=== PATIENT | female | born 1975 | race Caucasian/White ===

== ENCOUNTER 2023-05-18 15:32 | Emergency (ER) | payer SELFPAY ==
[~2023-05-18] VITALS: Ht 165.1 cm; Wt 80.0 kg
[~2023-05-18 15:32] MED LIST: AMOXICILLIN 50500 MG PO; BACTROBAN15 GM TOP; CENTRUM SILVER1 TA1 PO; CEPHALEXIN500 M1 PO; DECADRON4 MG PO; EPA-CON500 MG PO; IBU600 MG PO; LORTAB 5/500 501 TAB PO; NO HOME MEDICATIONS; PREDNISONE20 MG PO; PRENATAL1 TA7 PO; PRILOSEC10 MG PO; TESSALON PERLE200 MG PO; ZITHROMAX 250M250 MG PO
[2023-05-18 18:54] LABS: BASO # 0.1 K/mm3 (0.0-0.2); BASO % 0.6 % (0.0-2.0); EOS # 0.2 K/mm3 (0.0-0.7); EOS % 1.7 % (0.0-4.0); GRAN # 5.3 K/mm3 (1.4-6.5); GRAN % 58.6 % (42.2-75.2); HEMATOCRIT 46.1 % (37.0-47.0); HEMOGLOBIN 15.3 g/dl (12.5-16.0); LYMPH % 33.1 % (20.0-51.0); MEAN CELL VOLUME 94 fl (80.0-100.0); MEAN CORPUSCULAR HEMOGLOBIN 31 pg (27-31); MEAN CORPUSCULAR HGB CONC 33 g/dl (33.0-37.0); MEAN PLATELET VOLUME 10.4 fl (7.4-10.4); MONO # 0.5 K/mm3 (0.1-0.6); MONO % 5.8 % (1.7-9.3); PLATELET COUNT 202 K/mm3 (130-400); RED BLOOD COUNT 4.91 M/mm3 (4.10-5.30); REDCELL DISTRIBUTION WIDTH-CV 11.8 % (11.5-14.5)
[2023-05-18 19:12] LABS: ALANINE AMINOTRANSFERASE 19 U/L (0-55); ALBUMIN 3.9 gm/dL (3.5-5.0); ALKALINE PHOSPHATASE 107 U/L (40-150); ANION GAP 8 mmol/L (7-16); AST,SGOT 17 U/L (5-34); BLOOD UREA NITROGEN 12 mg/dL (7-19); CALCIUM 9.4 mg/dL (8.4-10.2); CHLORIDE 109 mmol/L (98-107); CREATININE, serum 0.76 mg/dL (0.57-1.11); GLUCOSE 98 mg/dL (70-99); LIPASE 29 U/L (8-78); POTASSIUM 3.8 mmol/L (3.5-4.5); SODIUM 140 mmol/L (136-145); TOTAL PROTEIN 7.4 gm/dL (6.2-8.1)
[2023-05-18] MEDS ORDERED: Cyclobenzaprine 10 MG TAB PO ONE (19:15)
[2023-05-18] MEDS ORDERED: Acetaminophen 325 MG TAB PO ONE (19:15)
[2023-05-18] MEDS ORDERED: Ketorolac 30 MG/ML VIAL IV ONE (19:15)
[2023-05-18 19:19] LABS: TROPONIN-I < 0.010 ng/mL (0.00-0.033)
[2023-05-18 19:21] LABS: BILIRUBIN,TOTAL 0.2 mg/dL (0.2-1.2)
[2023-05-18 20:17] VITALS: BP 110/81; PULSE 85; TEMP 98.1
== END 2023-05-18 20:23 | disposition home or self-care (01) ==
LOC: COL.ER 15:32
PROVIDERS: Nurse Practitioner Primary Care
DX: R07.89 Other chest pain (principal); R06.02 Shortness of breath; R05.9 Cough, unspecified
CPT/HCPCS: J1885